=== PATIENT | female | born 1975 | race Caucasian/White ===

== ENCOUNTER 2025-08-24 12:06 | Emergency (ER) | payer OTHER ==
[2025-08-24] MEDS ORDERED: Ketorolac Tromethamine 30 MG (1 mL) VIAL ONE (12:49)
== END 2025-08-24 14:04 | disposition home or self-care (01) ==
LOC: ERS 12:06
DX: S86.911A Strain of unspecified muscle(s) and tendon(s) at lower leg level, right leg, initial encounter (principal); X50.1XXA Overexertion from prolonged static or awkward postures, initial encounter
CPT/HCPCS: 96372; 99283; J1885